=== PATIENT | male | born 1960 | race African-American/Black ===

== ENCOUNTER 2017-02-16 14:33 | Emergency (ER) | payer OTHER ==
[2017-02-16 14:50] VITALS: BP 140/91; PULSE 90; TEMP 97.9; BMI 24.4
--- NOTE | 2017-02-16 15:22 | PDOC ---
History of Present Illness - History of Present Illness Initial Comments: 02/16/17 15:22 The patient is a 56 year old male with no past medical history presents to the emergency department with a complaint of left hand pain and swelling since earlier today. 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 The patient subsequently developed pain and swelling in his left hand. Patient had taken 800 mg of Motrin which helped with the pain and swelling. Patient denies any numbness or tingling in the hand. Patient reports there is pain around the 5th knuckle. Patient denies any other joint pains or injuries. <Peter Arshad - Last Filed: 02/16/17 15:28> - General History Source: Patient Exam Limitations: No Limitations <Familia Maguire - Last Filed: 02/16/17 15:42> - General Chief Complaint: Injury Stated Complaint: LEFT WRIST INJURY Time Seen by Provider: 02/16/17 14:54 Past History <Peter Arshad - Last Filed: 02/16/17 15:28> - Past Medical History HTN: Yes - Psycho/Social/Smoking Cessation Hx Anxiety: No Suicidal Ideation: No Smoking History: Never smoked Information on smoking cessation initiated: No Hx Alcohol Use: No Drug/Substance Use Hx: No Substance Use Type: None <Familia Maguire - Last Filed: 02/16/17 15:42> - Past Medical History Allergies/Adverse Reactions: Allergies Allergy/AdvReac Type Severity Reaction Status Date / Time No Known Allergies Allergy Verified 02/16/17 14:45 Home Medications: Ambulatory Orders Losartan Potassium 0 mg PO DAILY 02/16/17 Review of Systems - Review of Systems Able to Perform ROS?: Yes Comments:: 02/16/17 15:23 GENERAL/CONSTITUTIONAL: No fever or chills. No weakness. HEAD, EYES, EARS, NOSE AND THROAT: No change in vision. No ear pain or discharge. No sore throat. CARDIOVASCULAR: No chest pain or shortness of breath. RESPIRATORY: No cough, wheezing, or hemoptysis. GASTROINTESTINAL: No nausea, vomiting, diarrhea or constipation. GENITOURINARY: No dysuria, frequency, or change in urination. MUSCULOSKELETAL: Yes: left 5th knuckle swelling and pain. No muscle pain. No neck or back pain. SKIN: No rash NEUROLOGIC: No headache, vertigo, loss of consciousness, or change in strength/ sensation. ENDOCRINE: No increased thirst. No abnormal weight change. HEMATOLOGIC/LYMPHATIC: No anemia, easy bleeding, or history of blood clots. ALLERGIC/IMMUNOLOGIC: No hives or skin allergy. Is the patient limited [place] proficient: No <Peter Arshad - Last Filed: 02/16/17 15:28> *Physical Exam - Vital Signs Last Vital Signs Temp Pulse Resp BP Pulse Ox 97.9 F 90 18 140/91 99 02/16/17 14:46 02/16/17 14:46 02/16/17 14:46 02/16/17 14:46 02/16/17 14:46 - Physical Exam Comments: 02/16/17 15:24 GENERAL: Awake, alert, and fully oriented, in no acute distress HEAD: No signs of trauma EXTREMITIES: At the left hand: The median, radial and ulnar nerves sensation and strength are intact. There is 2+ radial pulse in the left hand. There is some swelling and mild hematoma overlying dorsal surface of the left 5th MC. There is no tenderness at the wrist. Remainder of the exam shows normal range of motion, no edema. No clubbing or cyanosis. No cords, erythema, or tenderness NEUROLOGICAL: Cranial nerves II through XII grossly intact. Normal speech, normal gait SKIN: Refer to extremities, other limon warm, Dry, normal turgor, no rashes or lesions noted. <Peter Arshad - Last Filed: 02/16/17 15:28> - Vital Signs Last Vital Signs Temp Pulse Resp BP Pulse Ox 97.9 F 90 18 140/91 99 02/16/17 14:46 02/16/17 14:46 02/16/17 14:46 02/16/17 14:46 02/16/17 14:46 <Familia Maguire - Last Filed: 02/16/17 15:42> Procedures - Splinting Splint Location: Left: Hand Pre-Proc Neuro Vasc Exam: normal Hand-Made Type: orthoglass Splint Type: Yes: Ulnar Post-Proc Neuro Vasc Exam: normal Remy Bandage: 4" Sling: No Complications: No Post splint xray: No <Familia Maguire - Last Filed: 02/16/17 15:42> ED Treatment Course - RADIOLOGY Radiology Studies Ordered: Category Date Time Status HAND- LEFT [RAD] Stat Radiology 02/16/17 14:54 Taken <Familia Maguire - Last Filed: 02/16/17 15:42> Medical Decision Making - Medical Decision Making 02/16/17 15:38 A portion of this note was documented by scribe services under my direction. I have reviewed the details of the note, within reason, and agree with the documentation with the following case summary and management plan written by me. Patient treated in the ED. Nursing notes are reviewed and incorporated into the medical decision-making. Vital signs reviewed. Peripheral IV access obtained by the nurse, laboratory studies are drawn and sent, reviewed and interpreted by myself. Vital Signs Temp Pulse Resp BP Pulse Ox 97.9 F 90 18 140/91 99 02/16/17 14:46 02/16/17 14:46 02/16/17 14:46 02/16/17 14:46 02/16/17 14:46 56 year old male with no past medical history presents with left hand 5th metacarpal pain. Was attempting to redirect a child at the [facility] when he accidentally hit his hand on the door. The patient is neurovascularly intact. Xray of hand reviewed by me, pending official read. Boxer's fracture. Pt was placed in an ulnar gutter splint. Keep on at all times. ICE PRN. NSAIDS Hand elevation And follow up with orthopedics. <Familia Maguire - Last Filed: 02/16/17 15:42> *DC/Admit/Observation/Transfer - Attestations Scribe Attestion: 02/16/17 15:25 Documentation prepared by Peter Arshad, acting as medical policy specialist for Familia Maguire MD <Peter Arshad - Last Filed: 02/16/17 15:28> <Familia Maguire - Last Filed: 02/16/17 15:42> Diagnosis at time of Disposition: Boxers fracture Qualifiers: Encounter type: initial encounter Fracture type: closed Qualified Code(s): S62.309A - Unspecified fracture of unspecified metacarpal bone, initial encounter for closed fracture - Discharge Dispostion Disposition: HOME Condition at time of disposition: Stable - Referrals Referrals: Garrison Gambino MD [Staff Physician] - Emil Estevez MD [Staff Physician] - - Patient Instructions Printed Discharge Instructions: DI for Boxer's Fracture Additional Instructions: Take 600 mg ibuprofen every 6 hours as needed for pain. Elevate the hand as much as you can. Ice several times a day. Keep the splint on at all times. Please make an appointment with an orthopedist/hand specialist. Call to schedule an appointment.
== END 2017-02-16 15:49 | disposition home or self-care (01) ==
LOC: FER 14:33
PROC: 2W3FX1Z Immobilization of Left Hand using Splint (ICD-10-PCS; principal; 2017-02-16)
DX: S62.309A Unspecified fracture of unspecified metacarpal bone, initial encounter for closed fracture (principal); X58.XXXA Exposure to other specified factors, initial encounter; Y99.0 Civilian activity done for income or pay; Y93.89 Activity, other specified; Y92.159 Unspecified place in reform school as the place of occurrence of the external cause
CPT/HCPCS: 73130-TC-LT; 99283-25